=== PATIENT | female | born 1995 ===

== ENCOUNTER 2018-07-08 09:21 | Emergency (ER) | payer OTHER ==
[~2018-07-08] VITALS: Ht 160 cm; Wt 68.0 kg
== END 2018-07-08 14:19 | disposition home or self-care (01) ==
LOC: ER 09:21
DX: S80.871A Other superficial bite, right lower leg, initial encounter (principal); L03.115 Cellulitis of right lower limb; W57.XXXA Bitten or stung by nonvenomous insect and other nonvenomous arthropods, initial encounter; Y93.89 Activity, other specified; Y92.89 Other specified places as the place of occurrence of the external cause; Y99.8 Other external cause status

== ENCOUNTER → 2021-01-19 | Outpatient (CLI) | payer OTHER ==
[~2021-01-19] MED LIST: PRENATAL FORMU1 EAC1 PO
== END | disposition home or self-care (01) ==
LOC: LAB 08:00 → CIR.AMB 01-21 08:00 → EDSTATUS 01-21 10:45 → CIR.AMB 01-21 17:36
PROVIDERS: ATTEND Obstetrics & Gynecology
DX: D25.9 Leiomyoma of uterus, unspecified (principal); Z01.812 Encounter for preprocedural laboratory examination

== ENCOUNTER 2021-03-04 11:40 | Day surgery (SDC) | payer OTHER | END 2021-03-05 00:05 | disposition home or self-care (01) | LOC: CIR.AMB 11:40 | PROVIDERS: ATTEND Obstetrics & Gynecology | DX: N84.0 Polyp of corpus uteri (principal); Z20.822 Contact with and (suspected) exposure to COVID-19 ==

== ENCOUNTER → 2021-08-19 09:56 | Outpatient (CLI) | payer OTHER | END | disposition home or self-care (01) | LOC: LAB 09:56 | PROVIDERS: ATTEND Internal Medicine | DX: Z20.828 Contact with and (suspected) exposure to other viral communicable diseases (principal) ==